=== PATIENT | male | born 2000 | race Caucasian/White ===

== ENCOUNTER 2024-03-02 18:10 | Emergency (ER) | payer MEDICAID ==
[~2024-03-02] VITALS: Ht 167.6 cm; Wt 64.0 kg
[2024-03-02 18:14] VITALS: BP 105/69; PULSE 68; RESP 18; TEMP 98.2; O2SAT 100
[2024-03-02] MEDS: KETOROLAC 30 MG/ML VIAL IM ONE (18:33)
[2024-03-02] MEDS ORDERED: CAPS1ADH5 TP (19:23)
[2024-03-02] MEDS ORDERED: NAPR-1704 PO (19:23)
[2024-03-02 19:30] VITALS: BP 109/55; PULSE 73; RESP 15; TEMP 98.1; O2SAT 98
== END 2024-03-02 19:15 | disposition home or self-care (01) ==
LOC: MED 18:10
DX: S39.012A Strain of muscle, fascia and tendon of lower back, initial encounter (principal); Z79.1 Long term (current) use of non-steroidal anti-inflammatories (NSAID); Z79.899 Other long term (current) drug therapy; X58.XXXA Exposure to other specified factors, initial encounter; Y93.66 Activity, soccer; Y92.89 Other specified places as the place of occurrence of the external cause; Y99.8 Other external cause status
CPT/HCPCS: 72100; 96372; 99283; J1885